=== PATIENT | female | born 1940 | race Asian ===

== ENCOUNTER → 2020-06-16 | Outpatient (CLI) | payer MEDICARE, OTHER ==
[~2020-06-16] MED LIST: ASPI-556 PO; DILT120C88 PO; FENO48TA20 PO; GABA250S2 PO; GLYB5TAB8 PO; METF-960 PO; SITA100 PO; TELM80TA2 PO
== END | disposition home or self-care (01) ==
LOC: RADPV 10:39
PROVIDERS: ATTEND Internal Medicine Pulmonary Disease
DX: I70.0 Atherosclerosis of aorta (principal); I51.7 Cardiomegaly; J84.9 Interstitial pulmonary disease, unspecified; M47.814 Spondylosis without myelopathy or radiculopathy, thoracic region; R06.02 Shortness of breath
CPT/HCPCS: 71046